=== PATIENT | male | born 1995 | race Caucasian/White ===

== ENCOUNTER 2017-01-26 15:16 | Emergency (ER) | payer OTHER ==
[~2017-01-26] VITALS: Ht 165.1 cm; Wt 75.0 kg
[~2017-01-26 15:16] MED LIST: ACYC200C PO
[2017-01-26 15:40] VITALS: BP 140/72
[2017-01-26] MEDS ORDERED: AMOX TR/POT CLAV 875 MG/125 MG TABLET PO ONE (16:00)
== END 2017-01-26 16:38 | disposition home or self-care (01) ==
LOC: EMS 15:16
DX: L03.213 Periorbital cellulitis (principal)
CPT/HCPCS: 99283

== ENCOUNTER 2020-07-13 17:53 | Emergency (ER) | payer SELFPAY ==
[~2020-07-13] VITALS: Ht 165.1 cm; Wt 76.8 kg
[2020-07-13 19:09] VITALS: BP 126/87
[2020-07-13] MEDS ORDERED: SULFAMETHOX/TRIMETH DS 800-160 MG/TABLET PO ONE (19:45)
== END 2020-07-13 20:26 | disposition home or self-care (01) ==
LOC: EMS 17:53
DX: L03.115 Cellulitis of right lower limb (principal)
CPT/HCPCS: 99283

== ENCOUNTER 2020-12-07 17:47 | Emergency (ER) | payer MEDICAID ==
[~2020-12-07] VITALS: Ht 170.2 cm; Wt 88.0 kg
[2020-12-07] MEDS ORDERED: LIDOCAINE 1% 10 ML VIAL ID ONE (19:15)
[2020-12-07] MEDS ORDERED: OxyCODONE HCL/ACETAMINOPHEN 5-325 MG TABLET PO ONE (19:15)
[2020-12-07] MEDS ORDERED: BACITRACIN 0.9 GM PACKET OINTMENT TP ONE (19:15)
[2020-12-07] MEDS ORDERED: POVIDONE-IODINE 10% 15 ML SOLUTION UD TP ONE (19:15)
[2020-12-07 21:26] VITALS: BP 132/81
== END 2020-12-07 21:29 | disposition home or self-care (01) ==
LOC: EMS 17:51
DX: S61.226A Laceration with foreign body of right little finger without damage to nail, initial encounter (principal); W23.0XXA Caught, crushed, jammed, or pinched between moving objects, initial encounter; Y93.89 Activity, other specified; Y92.89 Other specified places as the place of occurrence of the external cause; Y99.8 Other external cause status
CPT/HCPCS: 12041; 73140; 99284; J3490; 12001; 99283; 99285

== ENCOUNTER 2020-12-09 12:33 | Emergency (ER) | payer MEDICAID ==
[~2020-12-09] VITALS: Ht 165.1 cm; Wt 86.4 kg
[2020-12-09 13:24] VITALS: BP 125/72
== END 2020-12-09 13:35 | disposition home or self-care (01) ==
LOC: EMS 13:31
DX: R60.0 Localized edema (principal); F12.90 Cannabis use, unspecified, uncomplicated; Z48.00 Encounter for change or removal of nonsurgical wound dressing
CPT/HCPCS: 99282; 99283

== ENCOUNTER 2020-12-15 18:29 | Emergency (ER) | payer MEDICAID ==
[~2020-12-15] VITALS: Ht 165.1 cm; Wt 97.5 kg
[2020-12-15] MEDS ORDERED: BACITRACIN 0.9 GM PACKET OINTMENT TP ONE (19:30)
[2020-12-15 20:20] VITALS: BP 125/65
== END 2020-12-15 20:30 | disposition home or self-care (01) ==
LOC: EMS 18:29
DX: S61.411D Laceration without foreign body of right hand, subsequent encounter (principal); F12.90 Cannabis use, unspecified, uncomplicated; X58.XXXD Exposure to other specified factors, subsequent encounter
CPT/HCPCS: 99282; Z7502; Z7610

== ENCOUNTER 2021-02-01 22:49 | Emergency (ER) | payer MEDICAID, OTHER ==
[~2021-02-01] VITALS: Ht 165.1 cm; Wt 75.9 kg
[2021-02-02] MEDS ORDERED: KETOROLAC TROMETHAMINE 30 MG/ML VIAL IM ONE (00:45)
[2021-02-02 01:03] VITALS: BP 121/68
== END 2021-02-02 01:07 | disposition home or self-care (01) ==
LOC: EMS 22:52
DX: S43.101A Unspecified dislocation of right acromioclavicular joint, initial encounter (principal); W19.XXXA Unspecified fall, initial encounter; Y93.66 Activity, soccer; Y92.89 Other specified places as the place of occurrence of the external cause; Y99.8 Other external cause status
CPT/HCPCS: 73030; 96372; 99283; J1885

== ENCOUNTER 2021-11-28 14:07 | Inpatient (IN) | payer OTHER ==
[~2021-11-28] VITALS: Ht 165.1 cm; Wt 77.3 kg
[2021-11-28] MEDS ORDERED: HYDROCODONE/ACETAMINOPHEN 5-325 MG TABLET PO ONE (15:00)
[2021-11-28] MEDS ORDERED: DOXY-354 PO (15:07)
[2021-11-28] MEDS ORDERED: IBUP-2071 PO (15:07)
[2021-11-28 16:02] LABS: BASOPHILS % (AUTO) 0.5 % (0.0-2.0); EOSINOPHILS % (AUTO) 1.2 % (1.0-6.0); HEMATOCRIT 38.5 % (41-53); HEMOGLOBIN 13.5 g/dL (13.5-17.5); LYMPHOCYTES # (AUTO) 1.4 K/uL (1.0-4.8); LYMPHOCYTES % (AUTO) 15.2 % (22.0-44.0); MEAN CORPUSCULAR HEMOGLOBIN 31.5 pg (26.0-34.0); MEAN CORPUSCULAR VOLUME 90 fL (80-100); MONOCYTES # (AUTO) 0.8 K/uL (0.1-1.0); MONOCYTES % (AUTO) 8.5 % (2.0-9.0); NEUTROPHILS # (AUTO) 6.7 K/uL (1.8-7.7); NEUTROPHILS % (AUTO) 74.6 % (40.0-70.0); PLATELET COUNT (AUTO) 205 K/uL (150-450); RED BLOOD CELL COUNT(AUTO) 4.27 MIL/uL (4.50-5.90); RED CELL DISTRIBUTION WIDTH 13.3 % (11.5-14.5)
[2021-11-28 16:12] LABS: COVID AG,FIA SOURCE NASAL SWAB
[2021-11-28 16:13] LABS: ANION GAP 9 mmol/L (8-16); CALCIUM, TOTAL 8.6 mg/dL (8.8-10.5); CARBON DIOXIDE 27 mmol/L (22-29); CHLORIDE 102 mmol/L (98-107); CREATININE 0.83 mg/dL (0.60-1.30); GLOMERULAR FILTR. RATE CALC > 60 mL/min (>60); GLUCOSE,RANDOM 94 mg/dL (70-110); SODIUM SERUM 138 mmol/L (136-145); UREA NITROGEN, BLOOD 10 mg/dL (7-18)
[2021-11-28 16:18] LABS: ALANINE AMINOTRANSFERASE 20 U/L (12-78); ALBUMIN 3.3 g/dL (3.4-5.0); ALKALINE PHOSPHATASE 54 U/L (46-116); ASPARTATE AMINOTRANSFERASE 10 U/L (15-37); BILIRUBIN,TOTAL 2.5 mg/dL (0.1-1.0); C-REACTIVE PROTEIN QUANT 12.16 mg/dL (0.00-0.30); TOTAL PROTEIN, SERUM 6.9 g/dL (6.4-8.2)
[2021-11-28] MEDS ORDERED: VANCOMYCIN 1GM/WATER(PEG/NADA) 200 ML IV ONE ×2 (16:30→23:00)
[2021-11-28] MEDS ORDERED: 0.9% SODIUM CHLORIDE 10 ML SYRINGE IVP PRN (16:45)
[2021-11-28] MEDS ORDERED: ACETAMINOPHEN 325 MG TABLET PO PRN ×2 (16:45→20:00)
[2021-11-28] MEDS ORDERED: ONDANSETRON HCL 4 MG/2 ML VIAL IVP PRN ×2 (16:45→20:00)
[2021-11-28 16:49] LABS: ERYTHROCYTE SEDIMENTATION RATE 30 MM/HR (0-15)
[2021-11-28 17:40] VITALS: BP 98/52
[2021-11-28] MEDS ORDERED: SODIUM CHLORIDE 0.9% 500 ML IV ONE (18:15)
[2021-11-28] MEDS ORDERED: ZOLPIDEM TARTRATE 5 MG TABLET PO PRN (20:00)
[2021-11-28] MEDS ORDERED: MAGNESIUM HYDROXIDE SUSPENSION 30 ML UDCUP PO PRN (20:00)
[2021-11-28] MEDS ORDERED: BISACODYL 10 MG RECTAL RECTAL SUPPOSITORY PR PRN (20:00)
[2021-11-28] MEDS ORDERED: HYDROCODONE/ACETAMINOPHEN 5-325 MG TABLET PO PRN (20:00)
[2021-11-28 20:01] VITALS: BP 106/57
[2021-11-28] MEDS: DOCUSATE SODIUM 100 MG CAPSULE PO SCH (20:27)
[2021-11-28] MEDS ORDERED: SODIUM CHLORIDE 0.9% 100 ML ONE (22:09)
[2021-11-28] MEDS ORDERED: IOHEXOL 350 MG/ML 100 ML VIAL ONE (22:09)
[2021-11-29 05:18] VITALS: BP 106/57
[2021-11-29 06:29] LABS: BASOPHILS % (AUTO) 0.4 % (0.0-2.0); EOSINOPHILS % (AUTO) 1.7 % (1.0-6.0); HEMATOCRIT 38.2 % (41-53); HEMOGLOBIN 13.4 g/dL (13.5-17.5); LYMPHOCYTES # (AUTO) 1.5 K/uL (1.0-4.8); LYMPHOCYTES % (AUTO) 18.8 % (22.0-44.0); MEAN CORPUSCULAR HEMOGLOBIN 31.5 pg (26.0-34.0); MEAN CORPUSCULAR VOLUME 90 fL (80-100); MONOCYTES # (AUTO) 0.7 K/uL (0.1-1.0); MONOCYTES % (AUTO) 8.8 % (2.0-9.0); NEUTROPHILS # (AUTO) 5.7 K/uL (1.8-7.7); NEUTROPHILS % (AUTO) 70.3 % (40.0-70.0); PLATELET COUNT (AUTO) 204 K/uL (150-450); RED BLOOD CELL COUNT(AUTO) 4.24 MIL/uL (4.50-5.90); RED CELL DISTRIBUTION WIDTH 13.2 % (11.5-14.5)
[2021-11-29 06:45] LABS: ALANINE AMINOTRANSFERASE 18 U/L (12-78); ALKALINE PHOSPHATASE 55 U/L (46-116); ANION GAP 8 mmol/L (8-16); ASPARTATE AMINOTRANSFERASE 10 U/L (15-37); BILIRUBIN,TOTAL 1.9 mg/dL (0.1-1.0); CALCIUM, TOTAL 8.5 mg/dL (8.8-10.5); CARBON DIOXIDE 26 mmol/L (22-29); CHLORIDE 101 mmol/L (98-107); CREATININE 0.66 mg/dL (0.60-1.30); GLOMERULAR FILTR. RATE CALC > 60 mL/min (>60); GLUCOSE,RANDOM 85 mg/dL (70-110); POTASSIUM 4.1 mmol/L (3.5-5.1); SODIUM SERUM 135 mmol/L (136-145); TOTAL PROTEIN, SERUM 6.6 g/dL (6.4-8.2); UREA NITROGEN, BLOOD 8 mg/dL (7-18)
[2021-11-29 07:17] VITALS: BP 110/58
[2021-11-29] MEDS: HEPARIN SODIUM,PORCINE 5,000 UNITS/ML VIAL SQ SCH ×3 (08:55→16:00)
[2021-11-29] MEDS: VANCOMYCIN HCL 1.25 GM in DEXTROSE 5%-WATER 250 ML IV SCH ×2 (08:55→16:17)
[2021-11-29] MEDS: DOCUSATE SODIUM 100 MG CAPSULE PO SCH ×2 (08:55→20:32)
[2021-11-29] MEDS: PANTOPRAZOLE SODIUM 40 MG DR TABLET PO SCH (08:55)
[2021-11-29] MEDS ORDERED: MUPIROCIN CALCIUM 2% 22 GM OINTMENT TP SCH (11:00)
[2021-11-29] MEDS ORDERED: 0.9% SODIUM CHLORIDE 10 ML VIAL IVP ONE (12:00)
[2021-11-29] MEDS ORDERED: DEXAMETHASONE SOD PHOS 4 MG/ML VIAL IVP ONE (12:00)
[2021-11-29] MEDS ORDERED: LIDOCAINE/PF 2% 5 ML VIAL IM ONE (12:00)
[2021-11-29] MEDS ORDERED: ROCURONIUM BROMIDE 10 MG/ML 5 ML VIAL IVP ONE (12:00)
[2021-11-29] MEDS ORDERED: PROPOFOL 1% 20 ML VIAL IVP ONE (12:00)
[2021-11-29] MEDS ORDERED: ONDANSETRON HCL 4 MG/2 ML VIAL IVP ONE (12:00)
[2021-11-29] MEDS ORDERED: SUCCINYLCHOLINE CHLORIDE 20 MG/ML 10 ML VIAL IVP ONE (12:00)
[2021-11-29 15:11] VITALS: BP 115/59
[2021-11-29 19:25] VITALS: BP 102/64
[2021-11-29] MEDS ORDERED: VANCOMYCIN HCL 1 GM/VIAL ONE (19:43)
[2021-11-29] MEDS ORDERED: BUPIVACAINE HCL/PF 0.25% 30 ML VIAL ONE (19:43)
[2021-11-29] MEDS ORDERED: RINGERS SOLUTION,LACTATED 1,000 ML IV ONE (19:44)
[2021-11-29] MEDS: BUPIVACAINE 0.25%/EPI 1:200,000/PF 10 ML VIAL ONE ×2 (20:59→21:47)
[2021-11-29] MEDS ORDERED: MEPERIDINE-PF 25 MG/ML VIAL IVP PRN (21:00)
[2021-11-29] MEDS ORDERED: HYDROmorphone 2 MG/ML VIAL IVP PRN (21:00)
[2021-11-29] MEDS ORDERED: FentaNYL CITRATE PF 100 MCG/2 ML VIAL IVP PRN (21:00)
[2021-11-29 22:35] VITALS: BP 111/58
[2021-11-30] MEDS: HEPARIN SODIUM,PORCINE 5,000 UNITS/ML VIAL SQ SCH ×3 (00:13→15:18)
[2021-11-30] MEDS: VANCOMYCIN HCL 1.25 GM in DEXTROSE 5%-WATER 250 ML IV SCH ×3 (00:13→15:18)
[2021-11-30 04:07] VITALS: BP 92/61
[2021-11-30 07:21] LABS: BASOPHILS % (AUTO) 0.3 % (0.0-2.0); EOSINOPHILS % (AUTO) 0 % (1.0-6.0); HEMATOCRIT 38.7 % (41-53); HEMOGLOBIN 13.8 g/dL (13.5-17.5); LYMPHOCYTES # (AUTO) 0.8 K/uL (1.0-4.8); LYMPHOCYTES % (AUTO) 10.2 % (22.0-44.0); MEAN CORPUSCULAR HEMOGLOBIN 31.5 pg (26.0-34.0); MEAN CORPUSCULAR HGB CONC 35.7 G/dL (31.0-37.0); MEAN CORPUSCULAR VOLUME 88 fL (80-100); MONOCYTES # (AUTO) 0.3 K/uL (0.1-1.0); MONOCYTES % (AUTO) 3.2 % (2.0-9.0); PLATELET COUNT (AUTO) 244 K/uL (150-450); RED BLOOD CELL COUNT(AUTO) 4.38 MIL/uL (4.50-5.90); RED CELL DISTRIBUTION WIDTH 13.3 % (11.5-14.5)
[2021-11-30 07:29] LABS: ANION GAP 9 mmol/L (8-16); CALCIUM, TOTAL 8.8 mg/dL (8.8-10.5); CARBON DIOXIDE 26 mmol/L (22-29); CHLORIDE 105 mmol/L (98-107); CREATININE 0.76 mg/dL (0.60-1.30); GLOMERULAR FILTR. RATE CALC > 60 mL/min (>60); GLUCOSE,RANDOM 111 mg/dL (70-110); POTASSIUM 4.3 mmol/L (3.5-5.1); SODIUM SERUM 140 mmol/L (136-145); UREA NITROGEN, BLOOD 10 mg/dL (7-18)
[2021-11-30 07:32] LABS: NEUTROPHILS % (AUTO) 86.3 % (40.0-70.0)
[2021-11-30] MEDS ORDERED: OXYGEN THERAPY IH SCH (08:00)
[2021-11-30 08:15] VITALS: BP 106/62
[2021-11-30] MEDS: PANTOPRAZOLE SODIUM 40 MG DR TABLET PO SCH (09:25)
[2021-11-30] MEDS: DOCUSATE SODIUM 100 MG CAPSULE PO SCH ×2 (09:25→20:30)
[2021-11-30] MEDS ORDERED: MIDAZOLAM HCL 2 MG/2 ML VIAL IVP ONE (12:00)
[2021-11-30] MEDS ORDERED: FentaNYL CITRATE PF 100 MCG/2 ML VIAL IVP ONE (12:00)
[2021-11-30 16:08] VITALS: BP 113/52
[2021-11-30 20:33] VITALS: BP 102/50
[2021-12-01] MEDS: VANCOMYCIN HCL 1.25 GM in DEXTROSE 5%-WATER 250 ML IV SCH ×4 (00:12→22:59)
[2021-12-01] MEDS: HEPARIN SODIUM,PORCINE 5,000 UNITS/ML VIAL SQ SCH ×4 (00:15→22:59)
[2021-12-01 04:00] VITALS: BP 111/51
[2021-12-01 07:15] LABS: BASOPHILS % (AUTO) 1.2 % (0.0-2.0); EOSINOPHILS % (AUTO) 1.2 % (1.0-6.0); HEMATOCRIT 38.5 % (41-53); HEMOGLOBIN 13.6 g/dL (13.5-17.5); LYMPHOCYTES # (AUTO) 1.9 K/uL (1.0-4.8); LYMPHOCYTES % (AUTO) 40.5 % (22.0-44.0); MEAN CORPUSCULAR HEMOGLOBIN 31.4 pg (26.0-34.0); MEAN CORPUSCULAR HGB CONC 35.2 G/dL (31.0-37.0); MEAN CORPUSCULAR VOLUME 89 fL (80-100); MONOCYTES # (AUTO) 0.4 K/uL (0.1-1.0); MONOCYTES % (AUTO) 8.2 % (2.0-9.0); NEUTROPHILS # (AUTO) 2.3 K/uL (1.8-7.7); NEUTROPHILS % (AUTO) 48.9 % (40.0-70.0); PLATELET COUNT (AUTO) 240 K/uL (150-450); RED BLOOD CELL COUNT(AUTO) 4.31 MIL/uL (4.50-5.90); RED CELL DISTRIBUTION WIDTH 12.8 % (11.5-14.5)
[2021-12-01 07:22] LABS: ANION GAP 7 mmol/L (8-16); CALCIUM, TOTAL 7.7 mg/dL (8.8-10.5); CARBON DIOXIDE 28 mmol/L (22-29); CHLORIDE 103 mmol/L (98-107); CREATININE 0.75 mg/dL (0.60-1.30); GLUCOSE,RANDOM 85 mg/dL (70-110); SODIUM SERUM 138 mmol/L (136-145); UREA NITROGEN, BLOOD 11 mg/dL (7-18)
[2021-12-01 07:24] LABS: GLOMERULAR FILTR. RATE CALC > 60 mL/min (>60)
[2021-12-01 07:56] VITALS: BP 108/56
[2021-12-01] MEDS: PANTOPRAZOLE SODIUM 40 MG DR TABLET PO SCH (08:22)
[2021-12-01] MEDS: DOCUSATE SODIUM 100 MG CAPSULE PO SCH ×2 (08:23→19:56)
[2021-12-01 16:00] VITALS: BP 105/57
[2021-12-01] MEDS: MORPHINE SULFATE 2 MG/ML SYRINGE IVP PRN (16:05)
[2021-12-01] MEDS ORDERED: SODIUM CHLORIDE 0.9% 250 ML IV ONE (16:09)
[2021-12-01 19:35] VITALS: BP 110/56
[2021-12-02 04:00] VITALS: BP 107/51
[2021-12-02 05:17] LABS: ANION GAP 6 mmol/L (8-16); CALCIUM, TOTAL 8.6 mg/dL (8.8-10.5); CARBON DIOXIDE 27 mmol/L (22-29); CHLORIDE 103 mmol/L (98-107); CREATININE 0.73 mg/dL (0.60-1.30); GLUCOSE,RANDOM 86 mg/dL (70-110); SODIUM SERUM 136 mmol/L (136-145); UREA NITROGEN, BLOOD 10 mg/dL (7-18)
[2021-12-02 05:23] LABS: GLOMERULAR FILTR. RATE CALC > 60 mL/min (>60)
[2021-12-02 07:30] VITALS: BP 108/56
[2021-12-02] MEDS: DOCUSATE SODIUM 100 MG CAPSULE PO SCH ×2 (08:28→20:49)
[2021-12-02] MEDS: PANTOPRAZOLE SODIUM 40 MG DR TABLET PO SCH (08:28)
[2021-12-02] MEDS: MULTIVITAMINS WITH MINERALS, THERAPEUTIC TABLET PO SCH (08:28)
[2021-12-02] MEDS: HEPARIN SODIUM,PORCINE 5,000 UNITS/ML VIAL SQ SCH ×3 (08:28→23:31)
[2021-12-02] MEDS: VANCOMYCIN HCL 1.25 GM in DEXTROSE 5%-WATER 250 ML IV SCH ×3 (08:28→23:30)
[2021-12-02 15:12] VITALS: BP 104/58
[2021-12-02 19:40] VITALS: BP 108/60
[2021-12-03] MEDS ORDERED: SODIUM CHLORIDE 0.9% 250 ML IV ONE (00:01)
[2021-12-03 05:03] VITALS: BP 100/52
[2021-12-03 06:24] LABS: ANION GAP 8 mmol/L (8-16); CALCIUM, TOTAL 8.9 mg/dL (8.8-10.5); CARBON DIOXIDE 28 mmol/L (22-29); CHLORIDE 103 mmol/L (98-107); CREATININE 0.76 mg/dL (0.60-1.30); GLUCOSE,RANDOM 84 mg/dL (70-110); SODIUM SERUM 139 mmol/L (136-145); UREA NITROGEN, BLOOD 12 mg/dL (7-18); VANCOMYCIN,RANDOM 25.6 mcg/mL (25.0-50.0)
[2021-12-03 06:25] LABS: GLOMERULAR FILTR. RATE CALC > 60 mL/min (>60)
[2021-12-03 07:40] VITALS: BP 104/58
[2021-12-03] MEDS: VANCOMYCIN HCL 1.25 GM in DEXTROSE 5%-WATER 250 ML IV SCH (08:50)
[2021-12-03] MEDS: PANTOPRAZOLE SODIUM 40 MG DR TABLET PO SCH (08:50)
[2021-12-03] MEDS: MULTIVITAMINS WITH MINERALS, THERAPEUTIC TABLET PO SCH (08:50)
[2021-12-03] MEDS: HEPARIN SODIUM,PORCINE 5,000 UNITS/ML VIAL SQ SCH ×2 (08:50→16:27)
[2021-12-03] MEDS: DOCUSATE SODIUM 100 MG CAPSULE PO SCH (08:50)
[2021-12-03 15:26] VITALS: BP 109/58
[2021-12-03] MEDS ORDERED: VANCOMYCIN 1GM/WATER(PEG/NADA) 200 ML IV SCH (16:00)
[2021-12-03] MEDS: MORPHINE SULFATE 2 MG/ML SYRINGE IVP PRN (18:27)
[2021-12-03] MEDS ORDERED: SODIUM CL IRRIG SOLN BOTTLE 250 ML IRRIG ONE (18:36)
[2021-12-03] MEDS ORDERED: PANT20TA18 PO (18:55)
[2021-12-03] MEDS ORDERED: VANC1PIG IVPB (18:57)
[2021-12-03] MEDS ORDERED: MULT-1203 PO (18:58)
[2021-12-03 19:56] VITALS: BP 119/68
== END 2021-12-03 20:15 | DRG 571 ==
LOC: EMS 14:07 → 6S 16:50
PROVIDERS: ADMIT Internal Medicine; ATTEND Internal Medicine
PROC: 0JBN0ZZ Excision of Right Lower Leg Subcutaneous Tissue and Fascia, Open Approach (ICD-10-PCS; principal; 2021-11-29 20:45)
DX: L03.115 Cellulitis of right lower limb (principal); I96 Gangrene, not elsewhere classified; D64.9 Anemia, unspecified; F12.10 Cannabis abuse, uncomplicated; L02.415 Cutaneous abscess of right lower limb; M60.9 Myositis, unspecified; Z20.822 Contact with and (suspected) exposure to COVID-19; M72.9 Fibroblastic disorder, unspecified; Z86.16 Personal history of COVID-19; Z79.899 Other long term (current) drug therapy
CPT/HCPCS: 73706; 80048; 80053; 80202; 85025; 85651; 86140; 87040; 87070; 87081; 87101; 87205; 88304; 93971; 99285; J0330; J0690; J1100; J1644; J2250; J2270; J2405; J2704; J3010; J3370; J3490; J7040; J7050; J7060; J7120; Q9967; 36415-L1; 36415-TC; Z7610